=== PATIENT | male | born 1955 | race Caucasian/White ===

== ENCOUNTER → 2020-09-18 | Outpatient (CLI) | payer MEDICARE ==
[~2020-09-18] MED LIST: ATOR40TA59 PO; CARV25TA2 PO; DILT180C29 PO; HYDR12.572 PO; LISI-334 PO; OMEP10CA4 PO; WARF3TAB50 PO
[2020-09-22 08:31] VITALS: BP 142/98
== END ==
LOC: LAB 07:30
PROVIDERS: ATTEND Nurse Anesthetist, Certified Registered
DX: Z01.812 Encounter for preprocedural laboratory examination (principal); Z12.11 Encounter for screening for malignant neoplasm of colon; Z20.828 Contact with and (suspected) exposure to other viral communicable diseases
CPT/HCPCS: C9803; U0003

== ENCOUNTER → 2020-09-22 | Day surgery (SDC) | payer MEDICARE ==
[~2020-09-22] MED LIST changes: +IPRATRPIUM/ALBUTEROL 0.5/2.5MG 3 ML NEBU. NEB PRN; +IV RINGERS SOLUTION,LACTATED 1,000 ML IV SCH; +ONDANSETRON PF 4 MG/2 ML VIAL. IV PRN; +PROPOFOL 10,000 MCG/ML (20ML) VIAL IV ONE
[2020-09-22 08:31] VITALS: BP 142/98
--- NOTE | 2020-09-23 18:13 | PATHOLOGY ---
[facility] Accession Number: [id number] . 01 Material submitted: . PART A: colon - DESCENDING COLON POLYP. Modifiers: descending PART B: colon - SIGMOID COLON POLYP. Modifiers: sigmoid . 01 Clinical history: . HISTORY OF COLON CA . 02 Diagnosis: A. Colon biopsies, descending colon polyps: - Tubular adenomas. . B. Colon biopsies, sigmoid colon polyps. - Hyperplastic polyps. (JPM:[facility] 09/23/2020) [facility] 09/23/2020 0904 Local . 02 Comment: There is no high-grade dysplasia or evidence of malignancy. (JPM:[facility] 09/23/2020) . 02 Electronically signed: . Carlos Zhu MD, Pathologist NPI- [id number] . 01 Gross description: . A. The specimen is received in formalin, labeled "Hund, Franko, descending colon polyp" and consists of 4 fragments of pink-casas tissue measuring between 0.5 x 0.2 cm and 0.7 x 0.3 cm which are entirely submitted in A1. . B. The specimen is received in formalin, labeled "Hund, Franko, sigmoid colon x2" and consists of 4 fragments of pink-casas tissue measuring between 0.2 x 0.2 cm and 0.4 x 0.3 cm which are entirely submitted in B1. (SDY; 09/22/2020) SYU/SYU 09/22/2020 1822 Local . 02 Pathologist provided ICD-10: D12.4, K63.5 . 02 CPT . 686970, 201030 Specimen Comment: A courtesy copy of this report has been sent to [phone] Specimen Comment: [id number] Specimen Comment: Report sent to / DR FRANKLIN Performed at: 01 [facility] [address] [facility] [address] [facility] [address], [place], [place] [id number] MD Fuad Camacho MD Phone: [phone] Performed at: 02 [facility] [address] [place], [place] [id number] MD Carlos Zhu MD Phone: [phone]
== END ==
LOC: SURG 06:46
PROVIDERS: ATTEND Internal Medicine Gastroenterology
DX: K62.5 Hemorrhage of anus and rectum (principal); D12.4 Benign neoplasm of descending colon; K62.89 Other specified diseases of anus and rectum; Z87.891 Personal history of nicotine dependence; Z79.899 Other long term (current) drug therapy; Z86.010 Personal history of colon polyps
CPT/HCPCS: 45380; 45385; J2704; J7120